=== PATIENT | male | born 1995 | race Caucasian/White ===

== ENCOUNTER 2016-06-05 17:17 | Emergency (ER) | payer OTHER ==
[~2016-06-05] VITALS: Ht 175.3 cm; Wt 75.8 kg
[2016-06-05 17:18] VITALS: TEMP 36.8; Ht 175.3 cm; Wt 75.8 kg
[2016-06-05] MEDS ORDERED: ACETAMINOPHEN 500 MG TAB PO STA (17:57)
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
[2016-06-05] MEDS ORDERED: HYDR-5688 PO ×2 (19:50→19:52)
[2016-06-05 20:00] VITALS: BP 152/81; PULSE 98; O2SAT 96
[2016-06-05] MEDS ORDERED: NORCO 5/325MG HOME PACK PO ONE (20:00)
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
== END 2016-06-05 20:05 | disposition home or self-care (01) ==
LOC: C.EDB 17:18 → C.EDD 20:05
DX: S02.2XXA Fracture of nasal bones, initial encounter for closed fracture (principal); S80.211A Abrasion, right knee, initial encounter; S80.212A Abrasion, left knee, initial encounter; S92.414A Nondisplaced fracture of proximal phalanx of right great toe, initial encounter for closed fracture; V53.5XXA Driver of pick-up truck or van injured in collision with car, pick-up truck or van in traffic accident, initial encounter